=== PATIENT | female | born 1970 | race Caucasian/White ===

== ENCOUNTER 2018-07-16 05:10 | Inpatient (IN) | payer BC, OTHER ==
--- NOTE | 2018-07-16 06:18 | PDOC ---
History of Present Illness - General Chief Complaint: Pain Stated Complaint: ABDOMINAL PAIN Time Seen by Provider: 07/16/18 06:07 - History of Present Illness Initial Comments: 07/16/18 06:24 The patient is a 47 year old female with a history of DM, Gastritis who presents for evaluation of abdominal pain. The patient reports onset of poorly described epigastric and RUQ abdominal pain with radiation to her back beginning yesterday evening. She notes that the pain has been persistent preventing her from sleeping prompting her presentation to the ED for further evaluation. She otherwise denies fevers, chills, SOB, chest pain, nausea, vomiting, or changes with urination or bowel movements. She denies any exacerbating or relieving factors as well. Past History - Past Medical History Allergies/Adverse Reactions: Allergies Allergy/AdvReac Type Severity Reaction Status Date / Time No Known Allergies Allergy Verified 07/16/18 06:18 Home Medications: Ambulatory Orders Atorvastatin Ca [Lipitor] 10 mg PO HS 07/16/18 Lisinopril 2.5 mg HS 07/16/18 Metformin HCl [Glucophage] 500 mg PO BID 07/16/18 Amoxicillin/Potassium Clav [Augmentin 875-125 Tablet] 1 each PO BID #14 tablet 07/17/18 Nicotine [Nicotine Patch 21 mg/24 hr] 1 each TD DAILY #14 patch.td24 07/17/18 Review of Systems - Review of Systems Comments:: 07/16/18 06:26 Constitutional: No fevers, chills, fatigue, malaise HEENT: No Rhinorrhea, nasal congestion, visual changes Cardiovascular: No chest pain, syncope, palpitations, lightheadedness Respiratory: No Cough, SOB, Hemoptysis, Gastrointestinal: Abdominal pain. No Nausea, Vomiting, Constipation, Diarrhea, Melena Genitourinary: No Dysuria, Frequency, Urgency, Hesitancy, Hematuria, Flank pain Musculoskeletal: No Myalgia, arthralgia Skin: No rashes, itching, bruising, pallor Neurologic: No Headache, Dizziness, Numbness, Weakness, or Tingling Psychiatric: No Hallucinations. No SI or HI *Physical Exam - Physical Exam Comments: 07/16/18 06:26 General Appearance: Nourished. No Apparent Distress HEENT: No Pharyngeal Erythema, Tonsillar Exudate, Tonsillar Erythema Neck: No Cervical Lymphadenopathy Respiratory/Chest: Lungs Clear, Normal Breath Sounds. No Crackles, Rales, Rhonchi, Wheezing Cardiovascular: Regular Rhythm, Regular Rate. No Murmur, Gallops, Rubs Gastrointestinal/Abdominal: Normal Bowel Sounds, Soft. No Guarding, Rebound, Tenderness Musculoskeletal: No CVA Tenderness Extremity: Normal Capillary Refill Integumentary: Normal Color, Dry, Warm Neurologic: Fully Oriented, Alert, Normal Mood/Affect, Normal Response, Heart Score/ECG Review #1 ECG reviewed & interpreted by me at: 06:48 General ECG Interpretation: Sinus Rhythm, Normal Rate, Normal Intervals, No acute ischemic changes 07/16/18 06:48 Frequent Premature Ventricular Complexes HR 85 QRS [address] changes ED Treatment Course - LABORATORY CBC & Chemistry Diagram: 07/17/18 06:17 07/17/18 06:17 Medical Decision Making - Medical Decision Making 07/16/18 06:26 The patient is a 47 year old female with a history of DM, Gastritis who presents for evaluation of abdominal pain. Differential includes but is not limited to: Gastritis, Cholecystitis, Pancreatitis, Infectious, Metabolic Derangement. Given the patient's history and physical exam, we will obtain a cbc, cmp, lipase, troponin, ekg, gallbladder US to evaluate further. We will treat with iv fluids and pepcid and continue to monitor and reassess while here in the ED. 07/16/18 07:00 Patient signed out to the Day team pending lab results, gallbladder US and reassessment. *DC/Admit/Observation/Transfer Diagnosis at time of Disposition: Abdominal pain in female - Discharge Dispostion Disposition: HOME Condition at time of disposition: Stable - Referrals - Patient Instructions - Post Discharge Activity
[2018-07-16] MEDS ORDERED: SODIUM CHLORIDE 1,000 ML IV STA (06:19)
[2018-07-16] MEDS ORDERED: FAMOTIDINE 20 MG/50 ML IVPB 20 MG/50 ML MG IVPB ONE ×2 (06:19→08:26)
--- NOTE | 2018-07-16 06:21 | PDOC ---
Attending Attestation - Resident Resident Name: Silver Adkins - ED Attending Attestation I have performed the following: I have examined & evaluated the patient, The case was reviewed & discussed with the resident, I agree w/resident's findings & plan - HPI HPI: 07/16/18 06:31 Pt comes with RUQ pain. She is diabetic and 47 yo and we need to make sure that the pain that began yesterday night into this AM is not cardiac in origin. Pt will get cardiac workup and she will be signed out to the day ER team. 07/16/18 06:57 Pt ate at [facility] yesterday at 3:30PM. Pain started at 8:30PM - Physicial Exam PE: 07/16/18 06:56 Agree with exam. Normal exam; gassy abdomen - Medical Decision Making 07/16/18 06:57 Pt will get 1 cardiac enzyme and she will likely be cleared for discharge home. 07/21/18 22:44 Pt signed out to the day team Heart Score/ECG Review - ECG Intrepretation Rhythm: Regular Rhythm - Dunnegan Dunnegan: Normal - P and MT Prominent R with upright T in V1 (true posterior CO): No Delta Wave(s) Present: No WPW: No Comment:: 07/16/18 06:58 multiple PVCs - QRS Poor R Wave Progression: No Q Wave Present: No - ST and T Flattened T Waves: No Prolonged Q-T Interval: No - ECG Impressions Normal ECG: Yes Non-specific ST Elevation: No Ischemic Changes: No Torsades juliocesar Pointes: No WPW: No
[2018-07-16 06:49] LABS: EOS % 0.1 % (0-4.5); HEMATOCRIT 43.7 % (32.4-45.2); HEMOGLOBIN 14.9 GM/dL (10.7-15.3); LYMPH % 7.9 % (8-40); MCH 30.1 pg (25.7-33.7); MEAN CELL VOLUME 88.7 fl (80-96); MEAN PLT VOLUME 8.5 fl (7.5-11.1); MONO % 3.4 % (3.8-10.2); NEUT % 87.6 % (42.8-82.8); PLATELET COUNT 298 K/MM3 (134-434); RBC 4.93 M/mm3 (3.60-5.2); RDW 13.8 % (11.6-15.6); WHITE BLOOD COUNT 20.1 K/mm3 (4.0-10.0)
[2018-07-16 07:16] LABS: ALBUMIN 3.6 g/dl (3.4-5.0); ALK PHOS 102 U/L (45-117); ANION GAP 6 MMOL/L (8-16); BILIRUBIN,TOTAL 0.3 mg/dL (0.2-1); BLOOD UREA NITROGEN 13 mg/dL (7-18); CALCIUM 9.5 mg/dL (8.5-10.1); CHLORIDE 101 mmol/L (98-107); CO2 27 mmol/L (21-32); CREATININE 0.9 mg/dL (0.55-1.3); GLUCOSE,RANDOM 190 mg/dL (74-106); LIPASE 192 U/L (73-393); POTASSIUM 4.5 mmol/L (3.5-5.1); SGOT/AST 16 U/L (15-37); SGPT/ALT 18 U/L (13-61); SODIUM 135 mmol/L (136-145); TOT PROT 7.5 g/dl (6.4-8.2)
[2018-07-16] MEDS ORDERED: morphine SULFATE 4 MG/ML VIAL ONE (08:57)
[2018-07-16 11:40] LABS: ANISOCYTOSIS 0; HELMET CELLS 0; HOWELL-JOLLY BODIES 0; MACROCYTOSIS 0; OVALOCYTE 0; PLATELET ESTIMATE NORMAL; ROULEAU 0; SICKELED CELLS 0; TARGET CELLS 0; TEAR DROP CELLS 0; TOXIC GRANULATION 0
--- NOTE | 2018-07-16 12:19 | CONSULT ---
Consult Consult Specialty:: General Surgery Reason for Consultation:: gallstones on ultrasound - History of Present Illness Chief Complaint: abdomnial pain History of Present Illness: 47yo female PMH DM type 2, heavy smoker, obesity, gastritis, GERD, cholelithiasis presents with band like abdominal pain which has improved in RUQ. The patient reports onset of poorly described epigastric and RUQ abdominal pain with radiation to her back beginning yesterday evening. She notes that the pain has been persistent preventing her from sleeping prompting her presentation to the ED for further evaluation. She otherwise denies fevers, chills, SOB, chest pain, nausea, vomiting, or changes with urination or bowel movements. She denies any exacerbating or relieving factors as well. we were called to assess given sonogram results. - History Source History Provided By: Patient, Medical Record Limitations to Obtaining History: No Limitations - Past Medical History Gastrointestinal: Yes: Gastritis, GERD Hepatobiliary: Yes: Cholelithiasis ...: No Endocrine: Yes: Diabetes Mellitus Additional Medical History: obesity - Alcohol/Substance Use Hx Alcohol Use: No - Smoking History Smoking history: Current every day smoker Have you smoked in the past 12 months: Yes Aproximately how many cigarettes per day: 20 - Social History Place of : [facility] History of Recent Travel: No Home Medications - Allergies Allergies/Adverse Reactions: Allergies Allergy/AdvReac Type Severity Reaction Status Date / Time No Known Allergies Allergy Verified 07/16/18 06:18 - Home Medications Home Medications: Ambulatory Orders Atorvastatin Ca [Lipitor] 10 mg PO HS 07/16/18 Lisinopril 2.5 mg HS 07/16/18 Metformin HCl [Glucophage] 500 mg PO BID 07/16/18 Physical Exam Vital Signs: Vital Signs Temperature 98 F 07/16/18 05:10 Pulse Rate 86 07/16/18 05:10 Respiratory Rate 18 07/16/18 05:10 Blood Pressure 146/89 07/16/18 05:10 O2 Sat by Pulse Oximetry (%) 98 07/16/18 05:10 Vital Signs Period Temp Pulse Resp BP Sys/Vela Pulse Ox Last 24 Hr 98 F 86 18 146/89 98 Constitutional: Yes: No Distress, Anxious, Obese Eyes: Yes: Conjunctiva Clear, EOM Intact HENT: Yes: Atraumatic, Normocephalic Neck: Yes: Supple, Trachea Midline Cardiovascular: Yes: Regular Rate and Rhythm, S1, S2 Respiratory: Yes: Regular, CTA Bilaterally Gastrointestinal: Yes: Normal Bowel Sounds, Soft, Abdomen, Obese, Tenderness, Tenderness, Epigastrium. No: Tenderness, Rebound ...Rectal Exam: Yes: Deferred Renal/: No: CVA Tenderness - Left, CVA Tenderness - Right Breast(s): No: Nipple Inversion, Skin Changes Musculoskeletal: No: Muscle Pain, Muscle Weakness Extremities: No: Cool, Cyanosis Edema: No Peripheral Pulses WNL: Yes Integumentary: No: Jaundice, Rash, Skin Tear Neurological: Yes: Alert, Oriented. No: Confusion Psychiatric: Yes: Alert, Oriented Labs: CBC, BMP 07/16/18 06:30 07/16/18 06:30 Imaging - Results Cat Scan: Report Reviewed, Image Reviewed (cholelithiasis some pericholecystic fluid, >3cm left adrenal mass) Ultrasound: Report Reviewed, Image Reviewed (cholelithiasis) Problem List - Problems (1) Cholelithiasis Assessment/Plan: 47yo female MMP including gastritis, GERD, and cholelithiasis presents with band like abdominal pain which has improved in RUQ. Sono RUQ was reviewed cholelithiasis without associated cholecystitis. Leukocytosis 20K. CTscan imaging is consistent with acute cholecystitis would reccomend urgent cholecyststocmy. Incidental left adrenal mass - will require work up at the discretion of the medical doctor (would consider urine metanephrines, VMA) NPO and IVF hydration IV antibiotics CTsacn with PO and IV contrast GI evaluation and followup Cardiology evaluation for cholecystectomy repeat labs (trend WBC, repeat LFT) glycemeic control Discussed with patient risks, benefits and alternatives of laparoscopic possible open cholecystectomy, including but not limited to bleeding, infection , injury to adjacent structures, leak or injury, intraabdominal abscess, incisional hernia, need for further procedures, ; alternatives include antibiotics, delayed or no surgery - risks of this include failure of nonoperative therapy, perforation, sepsis, recurrence, . Patient desires to proceed with operation - will take to OR for above. Informed consent signed for same. will follow Thank you for the opportunity to participate in the care of this patient. Code(s): K80.20 - CALCULUS OF GALLBLADDER W/O CHOLECYSTITIS W/O OBSTRUCTION Qualifiers: Cholelithiasis location: gallbladder Cholecystitis presence: without cholecystitis Biliary obstruction: without biliary obstruction Qualified Code(s): K80.20 - Calculus of gallbladder without cholecystitis without obstruction (2) Gastritis Code(s): K29.70 - GASTRITIS, UNSPECIFIED, WITHOUT BLEEDING Qualifiers: Gastritis type: atrophic Gastritis bleeding: without bleeding Qualified Code(s): K29.40 - Chronic atrophic gastritis without bleeding (3) Acid reflux disease Code(s): K21.9 - GASTRO-ESOPHAGEAL REFLUX DISEASE WITHOUT ESOPHAGITIS Qualifiers: Esophagitis presence: without esophagitis Qualified Code(s): K21.9 - Gastro -esophageal reflux disease without esophagitis (4) Hiatal hernia Code(s): K44.9 - DIAPHRAGMATIC HERNIA WITHOUT OBSTRUCTION OR GANGRENE (5) Obesity (BMI 30.0-34.9) Code(s): E66.9 - OBESITY, UNSPECIFIED (6) Abdominal pain in female Code(s): R10.9 - UNSPECIFIED ABDOMINAL PAIN (7) Left adrenal mass Code(s): E27.9 - DISORDER OF ADRENAL GLAND, UNSPECIFIED
[2018-07-16] MEDS ORDERED: CEFOXITIN SODIUM 2 GM in DEXTROSE 5%-WATER - 100 ML IVPB ONE (12:30)
[2018-07-16 13:02] LABS: INR 1.03 (0.83-1.09); PROTHROMBIN TIME (PATIENT) 12.1 SEC (9.7-13.0)
[2018-07-16] MEDS: CEFOXITIN SODIUM/DEXTROSE,ISO 2 GM/50 ML BAG IVPB SCH (13:15)
[2018-07-16] MEDS: LACTATED RINGERS SOLUTION 1,000 ML/1,000 ML INFUS.BAG IV SCH (13:15)
[2018-07-16] MEDS: NICOTINE 21 MG/24 HOURS TOPICAL PATCH TD SCH (13:15)
[2018-07-16 13:33] LABS: EPI CELLS 3.7 /HPF (0-5); URINE APPEARANCE CLEAR; URINE BACTERIA 321.6 /hpf (NEGATIVE); URINE BILIRUBIN NEGATIVE (NEGATIVE); URINE CASTS 1 /hpf (0-8); URINE COLOR YELLOW; URINE GLUCOSE (UA) NEGATIVE (NEGATIVE); URINE KETONE NEGATIVE (NEGATIVE); URINE LEUK ESTERASE TRACE (NEGATIVE); URINE NITRITE NEGATIVE (NEGATIVE); URINE PROTEIN NEGATIVE (NEGATIVE); URINE RBC 3 /hpf (0-4); URINE UROBILINOGEN 0.2 mg/dL (0.2-1.0); URINE WBC 5 /hpf (0-5)
--- NOTE | 2018-07-16 15:29 | EKG ---
Test Reason : Blood Pressure : / mmHG Vent. Rate : 085 BPM Atrial Rate : 085 BPM P-R Int : 120 ms QRS Dur : 090 ms QT Int : 374 ms P-R-T Axes : 054 067 055 degrees QTc Int : 445 ms SINUS RHYTHM WITH FREQUENT PREMATURE VENTRICULAR COMPLEXES OTHERWISE NORMAL ECG NO PREVIOUS ECGS AVAILABLE Confirmed by PRATEEK SANTOS, KEEGAN ([id number]) on 07/16/2018 3:29:21 PM Referred By: Socorro BARRERA Confirmed By:KEEGAN CHANDRA MD
[2018-07-16 16:50] VITALS: BMI 33.2
--- NOTE | 2018-07-16 17:13 | HP ---
Admitting History and Physical - Primary Care Physician PCP: Jazlyn Llamas - Admission History of Present Illness: 47yo female PMH DM type 2, heavy smoker, obesity, gastritis, GERD, cholelithiasis presents with band like abdominal pain which has improved in RUQ. The patient reports onset of poorly described epigastric and RUQ abdominal pain with radiation to her back beginning yesterday evening. She notes that the pain has been persistent preventing her from sleeping prompting her presentation to the ED for further evaluation. She otherwise denies fevers, chills, SOB, chest pain, nausea, vomiting, or changes with urination or bowel movements. She denies any exacerbating or relieving factors as well. we were called to assess given sonogram results. - - Past Medical History Gastrointestinal: Yes: Gastritis, GERD Hepatobiliary: Yes: Cholelithiasis ...: No Endocrine: Yes: Diabetes Mellitus - Smoking History Smoking history: Current every day smoker Have you smoked in the past 12 months: Yes Aproximately how many cigarettes per day: 20 - Alcohol/Substance Use Hx Alcohol Use: No - Social History History of Recent Travel: No Home Medications - Allergies Allergies/Adverse Reactions: Allergies Allergy/AdvReac Type Severity Reaction Status Date / Time No Known Allergies Allergy Verified 07/16/18 06:18 - Home Medications Home Medications: Ambulatory Orders Atorvastatin Ca [Lipitor] 10 mg PO HS 07/16/18 Lisinopril 2.5 mg HS 07/16/18 Metformin HCl [Glucophage] 500 mg PO BID 07/16/18 Amoxicillin/Potassium Clav [Augmentin 875-125 Tablet] 1 each PO BID #14 tablet 07/17/18 Physical Examination Vital Signs: Vital Signs Temperature 98 F 07/16/18 05:10 Pulse Rate 86 07/16/18 05:10 Respiratory Rate 18 07/16/18 05:10 Blood Pressure 146/89 07/16/18 05:10 O2 Sat by Pulse Oximetry (%) 98 07/16/18 05:10 Constitutional: Yes: No Distress HENT: Yes: Atraumatic Neck: Yes: Supple Cardiovascular: Yes: Regular Rate and Rhythm Respiratory: Yes: CTA Bilaterally Gastrointestinal: Yes: Normal Bowel Sounds, Tenderness (mild ruq) Extremities: Yes: WNL Edema: No Neurological: Yes: Alert, Oriented Labs: CBC, BMP 07/16/18 06:30 07/16/18 06:30 Imaging - Results Cat Scan: Report Reviewed Ultrasound: Report Reviewed Problem List - Problems (1) Cholelithiasis Code(s): K80.20 - CALCULUS OF GALLBLADDER W/O CHOLECYSTITIS W/O OBSTRUCTION Qualifiers: Cholelithiasis location: gallbladder Cholecystitis presence: without cholecystitis Biliary obstruction: without biliary obstruction Qualified Code(s): K80.20 - Calculus of gallbladder without cholecystitis without obstruction (2) Gastritis Code(s): K29.70 - GASTRITIS, UNSPECIFIED, WITHOUT BLEEDING Qualifiers: Gastritis type: atrophic Gastritis bleeding: without bleeding Qualified Code(s): K29.40 - Chronic atrophic gastritis without bleeding (3) Hiatal hernia Code(s): K44.9 - DIAPHRAGMATIC HERNIA WITHOUT OBSTRUCTION OR GANGRENE (4) Hypercholesteremia Code(s): E78.00 - PURE HYPERCHOLESTEROLEMIA, UNSPECIFIED (5) Left adrenal mass Code(s): E27.9 - DISORDER OF ADRENAL GLAND, UNSPECIFIED (6) Obesity (BMI 30.0-34.9) Code(s): E66.9 - OBESITY, UNSPECIFIED (7) Type 2 diabetes mellitus Code(s): E11.9 - TYPE 2 DIABETES MELLITUS WITHOUT COMPLICATIONS (8) Acute cholecystitis Assessment/Plan: npo ivf prn pain meds surgery id consult Code(s): K81.0 - ACUTE CHOLECYSTITIS Assessment/Plan Laboratory Results - last 24 hr 07/16/18 07/16/18 07/16/18 06:30 06:30 10:35 WBC 20.1 H RBC 4.93 Hgb 14.9 Hct 43.7 MCV 88.7 MCH 30.1 MCHC 34.0 RDW 13.8 Plt Count 298 MPV 8.5 Absolute Neuts (auto) 17.6 H Neutrophils % 87.6 H Neutrophils % (Manual) 89.1 H Band Neutrophils % 5.0 Lymphocytes % 7.9 L Lymphocytes % (Manual) 5.9 L Monocytes % 3.4 L Monocytes % (Manual) 0 L Eosinophils % 0.1 Eosinophils % (Manual) 0.0 Basophils % 1.0 Basophils % (Manual) 0.0 Myelocytes % (Man) 0 Promyelocytes % (Man) 0 Blast Cells % (Manual) 0 Nucleated RBC % 0 Metamyelocytes 0 Hypochromia 0 Toxic Granulation 0 Dohle Bodies 0 Platelet Estimate Normal Polychromasia 0 Poikilocytosis 0 Basophilic Stippling 0 Anisocytosis 0 Microcytosis 0 Macrocytosis 0 Spherocytes 0 Sickle Cells 0 Target Cells 0 Tear Drop Cells 0 Ovalocytes 0 Stomatocytes 0 Helmet Cells 0 [place] Bodies 0 [place] 0 [place] Cells 0 Acanthocytes (Spur) 0 Rouleaux 0 Fragmented RBCs 0 Schistocytes 0 PT with INR INR Sodium 135 L Potassium 4.5 Chloride 101 Carbon Dioxide 27 Anion Gap 6 L BUN 13 Creatinine 0.9 Creat Clearance w eGFR 66.55 POC Glucometer Random Glucose 190 H Calcium 9.5 Total Bilirubin 0.3 AST 16 ALT 18 Alkaline Phosphatase 102 Creatine Kinase 59 Troponin I < 0.02 < 0.02 Total Protein 7.5 Albumin 3.6 Lipase 192 Urine Color Urine Appearance Urine pH Ur Specific [place] Urine Protein Urine Glucose (UA) Urine Ketones Urine Blood Urine Nitrite Urine Bilirubin Urine Urobilinogen Ur Leukocyte Esterase Urine WBC (Auto) Urine RBC (Auto) Urine Casts (Auto) U Epithel Cells (Auto) Urine Bacteria (Auto) Blood Type Antibody Screen 07/16/18 07/16/18 07/16/18 12:13 12:13 12:15 WBC RBC Hgb Hct MCV MCH MCHC RDW Plt Count MPV Absolute Neuts (auto) Neutrophils % Neutrophils % (Manual) Band Neutrophils % Lymphocytes % Lymphocytes % (Manual) Monocytes % Monocytes % (Manual) Eosinophils % Eosinophils % (Manual) Basophils % Basophils % (Manual) Myelocytes % (Man) Promyelocytes % (Man) Blast Cells % (Manual) Nucleated RBC % Metamyelocytes Hypochromia Toxic Granulation Dohle Bodies Platelet Estimate Polychromasia Poikilocytosis Basophilic Stippling Anisocytosis Microcytosis Macrocytosis Spherocytes Sickle Cells Target Cells Tear Drop Cells Ovalocytes Stomatocytes Helmet Cells [place] Bodies [place] Cells Acanthocytes (Spur) Rouleaux Fragmented RBCs Schistocytes PT with INR 12.10 INR 1.03 Sodium Potassium Chloride Carbon Dioxide Anion Gap BUN Creatinine Creat Clearance w eGFR POC Glucometer 116 Random Glucose Calcium Total Bilirubin AST ALT Alkaline Phosphatase Creatine Kinase Troponin I Total Protein Albumin Lipase Urine Color Urine Appearance Urine pH Ur Specific [place] Urine Protein Urine Glucose (UA) Urine Ketones Urine Blood Urine Nitrite Urine Bilirubin Urine Urobilinogen Ur Leukocyte Esterase Urine WBC (Auto) Urine RBC (Auto) Urine Casts (Auto) U Epithel Cells (Auto) Urine Bacteria (Auto) Blood Type O POSITIVE Antibody Screen Negative 07/16/18 13:20 WBC RBC Hgb Hct MCV MCH MCHC RDW Plt Count MPV Absolute Neuts (auto) Neutrophils % Neutrophils % (Manual) Band Neutrophils % Lymphocytes % Lymphocytes % (Manual) Monocytes % Monocytes % (Manual) Eosinophils % Eosinophils % (Manual) Basophils % Basophils % (Manual) Myelocytes % (Man) Promyelocytes % (Man) Blast Cells % (Manual) Nucleated RBC % Metamyelocytes Hypochromia Toxic Granulation Dohle Bodies Platelet Estimate Polychromasia Poikilocytosis Basophilic Stippling Anisocytosis Microcytosis Macrocytosis Spherocytes Sickle Cells Target Cells Tear Drop Cells Ovalocytes Stomatocytes Helmet Cells [place] Bodies [place] Myrtle Cells Acanthocytes (Spur) Rouleaux Fragmented RBCs Schistocytes PT with INR INR Sodium Potassium Chloride Carbon Dioxide Anion Gap BUN Creatinine Creat Clearance w eGFR POC Glucometer Random Glucose Calcium Total Bilirubin AST ALT Alkaline Phosphatase Creatine Kinase Troponin I Total Protein Albumin Lipase Urine Color Yellow Urine Appearance Clear Urine pH 5.0 Ur Specific [place] 1.014 Urine Protein Negative Urine Glucose (UA) Negative Urine Ketones Negative Urine Blood 1+ H Urine Nitrite Negative Urine Bilirubin Negative Urine Urobilinogen 0.2 Ur Leukocyte Esterase Trace Urine WBC (Auto) 5 Urine RBC (Auto) 3 Urine Casts (Auto) 1 U Epithel Cells (Auto) 3.7 Urine Bacteria (Auto) 321.6 Blood Type Antibody Screen Active Medications Generic Name Dose Route Start Last Admin Trade Name Freq PRN Reason Stop Dose Admin Cefoxitin Sodium 2 gm in 50 mls @ 100 mls/hr 07/16/18 13:00 07/16/18 13:15 Mefoxin Premix (Restricted To Id) IVPB 100 mls/hr ONCE ZURI Administration Protocol Lactated Ringer's 1,000 ml in 1,000 mls @ 100 mls/hr 07/16/18 13:00 07/16/18 13:15 Lactated Ringers Solution IV 100 mls/hr ASDIR ZURI Administration Nicotine 21 mg 07/16/18 12:30 07/16/18 13:15 Nicoderm Patch - TD 21 mg DAILY ZURI Administration
[2018-07-16] MEDS ORDERED: metFORMIN HCL 500 MG TABLET (FP) PO SCH (19:45)
[2018-07-16] MEDS ORDERED: MORPHINE SULFATE 2 MG/ML VIAL IVPUSH PRN (21:35)
[2018-07-16] MEDS ORDERED: ATORVASTATIN CA 10 MG TABLET (FP) PO SCH (22:00)
[2018-07-16] MEDS ORDERED: LISINOPRIL 5 MG TABLET (FP) PO SCH (22:00)
[2018-07-17] MEDS: LACTATED RINGERS SOLUTION 1,000 ML/1,000 ML INFUS.BAG IV SCH ×3 (00:10→13:49)
[2018-07-17 07:29] LABS: BASO % 0.7 % (0-2.0); EOS % 1.8 % (0-4.5); HEMATOCRIT 40.8 % (32.4-45.2); LYMPH % 29.8 % (8-40); MCH 30.5 pg (25.7-33.7); MCHC 34.4 g/dl (32.0-36.0); MEAN CELL VOLUME 88.8 fl (80-96); MEAN PLT VOLUME 8.6 fl (7.5-11.1); MONO % 8.8 % (3.8-10.2); NEUT % 58.9 % (42.8-82.8); PLATELET COUNT 249 K/MM3 (134-434); RDW 13.9 % (11.6-15.6); WHITE BLOOD COUNT 9.4 K/mm3 (4.0-10.0)
[2018-07-17 07:55] LABS: ALBUMIN 3.1 g/dl (3.4-5.0); ALK PHOS 89 U/L (45-117); ANION GAP 7 MMOL/L (8-16); BILIRUBIN,TOTAL 0.5 mg/dL (0.2-1); BLOOD UREA NITROGEN 8 mg/dL (7-18); CALCIUM 8.5 mg/dL (8.5-10.1); CHLORIDE 107 mmol/L (98-107); CO2 28 mmol/L (21-32); CREATININE 0.8 mg/dL (0.55-1.3); GLUCOSE,RANDOM 108 mg/dL (74-106); POTASSIUM 4.1 mmol/L (3.5-5.1); SGOT/AST 17 U/L (15-37); SGPT/ALT 21 U/L (13-61); SODIUM 142 mmol/L (136-145); TOT PROT 6.4 g/dl (6.4-8.2)
[2018-07-17] MEDS ORDERED: PIPERACILLIN/TAZOBACTAM 4.5 GM VIAL IVPB ONE (09:19)
[2018-07-17] MEDS ORDERED: DEXTROSE 5%-WATER 100 ML IVPB ONE (09:20)
[2018-07-17] MEDS: PIPERACILLIN/TAZOB 4.5 GM 4.5 GM in DEXTROSE 5%-WATER 100 ML IVPB SCH ×2 (09:34→10:53)
[2018-07-17] MEDS: NICOTINE 21 MG/24 HOURS TOPICAL PATCH TD SCH ×2 (09:35→10:57)
[2018-07-17] MEDS ORDERED: PANTOPRAZOLE SODIUM 40 MG VIAL IVPUSH SCH (10:00)
--- NOTE | 2018-07-17 10:40 | PN ---
Progress Note, Physician Chief Complaint: RUQ pain History of Present Illness: 47yo female PMH DM type 2, heavy smoker, obesity, gastritis, GERD, cholelithiasis presents with band like abdominal pain which has improved in RUQ. she has been seen by ID and endocrine in consultation in the interim - Current Medication List Current Medications: Active Medications Atorvastatin Calcium (Lipitor -) 10 mg PO HS ZURI Last Admin: 07/16/18 22:26 Dose: 10 mg Cefoxitin Sodium (Mefoxin Premix (Restricted To Id)) 2 gm in 50 mls @ 100 mls/ hr IVPB ONCE ZURI; Protocol Last Admin: 07/16/18 13:15 Dose: 100 mls/hr Lactated Ringer's (Lactated Ringers Solution) 1,000 ml in 1,000 mls @ 100 mls/ hr IV ASDIR ZURI Last Admin: 07/17/18 00:10 Dose: 100 mls/hr Piperacillin Sod/Tazobactam (Sod 4.5 gm/ Dextrose) 100 mls @ 200 mls/hr IVPB Q8H-IV ZURI; Protocol Last Admin: 07/17/18 09:34 Dose: 200 mls/hr Lisinopril (Prinivil) 2.5 mg PO HS ZURI Last Admin: 07/16/18 22:26 Dose: 2.5 mg Morphine Sulfate (Morphine Sulfate) 2 mg IVPUSH Q4H PRN PRN Reason: PAIN LEVEL 4 - 6 Nicotine (Nicoderm Patch -) 21 mg TD DAILY ZURI Last Admin: 07/17/18 09:35 Dose: Not Given Pantoprazole Sodium (Protonix Iv) 40 mg IVPUSH DAILY ZURI Last Admin: 07/17/18 09:34 Dose: 40 mg - Objective Vital Signs: Vital Signs Temperature 98.0 F 07/17/18 09:30 Pulse Rate 69 07/17/18 09:30 Respiratory Rate 18 07/17/18 09:30 Blood Pressure 120/58 L 07/17/18 09:30 O2 Sat by Pulse Oximetry (%) 96 07/16/18 20:11 Vital Signs Period Temp Pulse Resp BP Sys/Vela Pulse Ox Last 24 Hr 97.7 F-98.4 F 69-96 18-76 104-154/50-86 96-98 Constitutional: Yes: Well Nourished, No Distress, Calm Eyes: Yes: Conjunctiva Clear, EOM Intact HENT: Yes: Atraumatic, Normocephalic Neck: Yes: Supple, Trachea Midline Cardiovascular: Yes: Regular Rate and Rhythm, S1, S2 Respiratory: Yes: Regular, CTA Bilaterally Gastrointestinal: Yes: Normal Bowel Sounds, Soft ...Rectal Exam: Yes: Deferred Genitourinary: No: CVA Tenderness - Left, CVA Tenderness - Right Breast(s): No: Dimpling, Nipple Inversion Musculoskeletal: No: Muscle Pain, Muscle Weakness Extremities: No: Cool, Cyanosis Edema: No Peripheral Pulses WNL: Yes Peripheral Pulses: Left Radial: 2+, Right Radial: 2+, Left Doralis Pedis: 2+, Right Dorsalis Pedis: 2+, Left Femoral: 2+, Right Femoral: 2+ Integumentary: No: Jaundice, Pressure Ulcer Neurological: Yes: Alert, Oriented Psychiatric: Yes: Alert, Oriented Labs: CBC, BMP 07/17/18 06:17 07/17/18 06:17 INR, PTT INR 1.03 (0.83-1.09) 07/16/18 12:13 Problem List - Problems (1) Cholelithiasis Assessment/Plan: 47yo female MMP including gastritis, GERD, and cholelithiasis presents with band like abdominal pain which has improved in RUQ. Sono RUQ was reviewed cholelithiasis without associated cholecystitis. Leukocytosis 20K. CTscan imaging is consistent with acute cholecystitis would reccomend urgent cholecyststocmy. Cancelled surgery today in order to proceed with incidental left adrenal mass - will require work up at the discretion of the medical doctor (would consider urine metanephrines, VMA) start diet IV antibiotics transition to PO GI followup endocrine followup surgery followup for elective cholecystectomy Code(s): K80.20 - CALCULUS OF GALLBLADDER W/O CHOLECYSTITIS W/O OBSTRUCTION Qualifiers: Cholelithiasis location: gallbladder Cholecystitis presence: without cholecystitis Biliary obstruction: without biliary obstruction Qualified Code(s): K80.20 - Calculus of gallbladder without cholecystitis without obstruction (2) Gastritis Code(s): K29.70 - GASTRITIS, UNSPECIFIED, WITHOUT BLEEDING Qualifiers: Gastritis type: atrophic Gastritis bleeding: without bleeding Qualified Code(s): K29.40 - Chronic atrophic gastritis without bleeding (3) Acid reflux disease Code(s): K21.9 - GASTRO-ESOPHAGEAL REFLUX DISEASE WITHOUT ESOPHAGITIS Qualifiers: Esophagitis presence: without esophagitis Qualified Code(s): K21.9 - Gastro -esophageal reflux disease without esophagitis (4) Hiatal hernia Code(s): K44.9 - DIAPHRAGMATIC HERNIA WITHOUT OBSTRUCTION OR GANGRENE (5) Obesity (BMI 30.0-34.9) Code(s): E66.9 - OBESITY, UNSPECIFIED (6) Abdominal pain in female Code(s): R10.9 - UNSPECIFIED ABDOMINAL PAIN (7) Left adrenal mass Code(s): E27.9 - DISORDER OF ADRENAL GLAND, UNSPECIFIED
--- NOTE | 2018-07-17 11:07 | CON.CARD ---
Consult Consult Specialty:: Cardiology Referred by:: Dr. Llamas Reason for Consultation:: Cardiac evaluation - History of Present Illness Chief Complaint: RUQ abdominal pain History of Present Illness: Patient is a 47 year old female with underlying history of type 2 DM, exogenous obesity, GERD, HTN, hypercholesterolemia and cholelithiasis currently admitted with RUQ pain and awaits laparoscopic cholecystectomy, however; currently postponed due to left adrenal mass on abdominal CT. Currently she denies any abdominal pain. She denies chest pain, SOB or palpitations. She denies paroxysmal nocturnal dyspnea or orthopnea. She denies fever or chills. She denies nausea, vomiting, diarrhea. She denies headache or lightheadedness. ECG revealed normal sinus rhythm with PVCs - History Source History Provided By: Patient, Medical Record Limitations to Obtaining History: No Limitations - Past Medical History Gastrointestinal: Yes: Gastritis, GERD Hepatobiliary: Yes: Cholelithiasis ...: No Endocrine: Yes: Diabetes Mellitus Additional Medical History: obesity - Past Surgical History Past Surgical History: Yes: None - Alcohol/Substance Use Hx Alcohol Use: No - Smoking History Smoking history: Current every day smoker Have you smoked in the past 12 months: Yes Aproximately how many cigarettes per day: 20 - Social History History of Recent Travel: No Home Medications - Allergies Allergies/Adverse Reactions: Allergies Allergy/AdvReac Type Severity Reaction Status Date / Time No Known Allergies Allergy Verified 07/16/18 06:18 - Home Medications Home Medications: Ambulatory Orders Atorvastatin Ca [Lipitor] 10 mg PO HS 07/16/18 Lisinopril 2.5 mg HS 07/16/18 Metformin HCl [Glucophage] 500 mg PO BID 07/16/18 Family Disease History - Family Disease History Other Family History: History of DM, HTN Review of Systems - Review of Systems Constitutional: denies: Chills, Fever Cardiovascular: denies: Chest Pain, Palpitations, Shortness of Breath Respiratory: denies: Cough, Hemoptysis, Orthopnea, PND, SOB, SOB on Exertion Gastrointestinal: reports: Abdominal Pain. denies: Constipation, Diarrhea, Melena, Nausea, Rectal Bleeding, Vomiting Genitourinary: denies: Dysuria, Hematuria Neurological: denies: Dizziness, Headache, Seizure, Syncope Vital Signs: Vital Signs Temperature 98.0 F 07/17/18 09:30 Pulse Rate 69 07/17/18 09:30 Respiratory Rate 18 04/09/19 09:30 Blood Pressure 120/58 L 07/17/18 09:30 O2 Sat by Pulse Oximetry (%) 96 07/16/18 20:11 Constitutional: Yes: No Distress Eyes: Yes: PERRL HENT: Yes: Atraumatic Neck: Yes: Supple Respiratory: Yes: CTA Bilaterally Gastrointestinal: Yes: Normal Bowel Sounds, Soft. No: Tenderness Cardiovascular: Yes: Regular Rate and Rhythm JVD: No Carotid Bruit: No PMI: Non-Displaced Heart Sounds: Yes: S1, S2. No: Gallop Murmur: No: Systolic Murmur, Diastolic Murmur Edema: No - Other Data Labs, Other Data: CBC, BMP 07/17/18 06:17 07/17/18 06:17 INR, PTT INR 1.03 (0.83-1.09) 07/16/18 12:13 Troponin, BNP 07/16/18 10:35 Troponin I < 0.02 Sinus rhythm with occasional PVCs Imaging - Results Cat Scan: Report Reviewed (Abdomen CT) EKG: Report Reviewed Problem List - Problems (1) Hypercholesteremia Code(s): E78.00 - PURE HYPERCHOLESTEROLEMIA, UNSPECIFIED (2) HTN (hypertension) Code(s): I10 - ESSENTIAL (PRIMARY) HYPERTENSION (3) Type 2 diabetes mellitus Code(s): E11.9 - TYPE 2 DIABETES MELLITUS WITHOUT COMPLICATIONS (4) Cholelithiasis Code(s): K80.20 - CALCULUS OF GALLBLADDER W/O CHOLECYSTITIS W/O OBSTRUCTION Qualifiers: Cholelithiasis location: gallbladder Cholecystitis presence: without cholecystitis Biliary obstruction: without biliary obstruction Qualified Code(s): K80.20 - Calculus of gallbladder without cholecystitis without obstruction (5) Gastritis Code(s): K29.70 - GASTRITIS, UNSPECIFIED, WITHOUT BLEEDING Qualifiers: Gastritis type: atrophic Gastritis bleeding: without bleeding Qualified Code(s): K29.40 - Chronic atrophic gastritis without bleeding (6) Left adrenal mass Code(s): E27.9 - DISORDER OF ADRENAL GLAND, UNSPECIFIED Assessment/Plan 1. PVCs, likely benign 2. Cholelithiasis 3. HTN 4. Hypercholesterolemia 5. Type 2 DM 6. Exogenous obesity PLAN: 1. Further plans as per Surgical service regarding timing of surgery 2. Further evaluation of adrenal mass 3. Continue Lipitor and Lisinopril as tolerated 4. Empiric antibiotics 5. Echocardiography can be done as outpatient. [facility] the [facility] ([facility]) [phone] Matthias Bell MD
--- NOTE | 2018-07-17 11:11 | CONSULT ---
Consult Consult Specialty:: Endocrinology Referred by:: Dr Llamas Reason for Consultation:: Adrenal Mass - History of Present Illness Chief Complaint: Abd pain History of Present Illness: This is a 47 year old female with a history of T2DM, Gastritis who presents for evaluation of abdominal pain. The patient reports onset of poorly described epigastric and RUQ abdominal pain with radiation to her back beginning yesterday evening. She notes that the pain has been persistent preventing her from sleeping prompting her presentation to the ED for further evaluation. She otherwise denies fevers, chills, SOB, chest pain, nausea, vomiting, or changes with urination or bowel movements. She denies any exacerbating or relieving factors as well. Pt found to have cholelithiasis and left adrenal mass and referred for evaluation. Pt denies any previous diagnosis of adrenal problem and doesn't remember having any previous CT abdomen. - History Source History Provided By: Patient, Medical Record Limitations to Obtaining History: No Limitations - Past Medical History Gastrointestinal: Yes: Gastritis, GERD Hepatobiliary: Yes: Cholelithiasis ...: No Endocrine: Yes: Diabetes Mellitus Additional Medical History: obesity - Alcohol/Substance Use Hx Alcohol Use: No - Smoking History Smoking history: Current every day smoker Have you smoked in the past 12 months: Yes Aproximately how many cigarettes per day: 20 - Social History History of Recent Travel: No Home Medications - Allergies Allergies/Adverse Reactions: Allergies Allergy/AdvReac Type Severity Reaction Status Date / Time No Known Allergies Allergy Verified 07/16/18 06:18 - Home Medications Home Medications: Ambulatory Orders Atorvastatin Ca [Lipitor] 10 mg PO HS 07/16/18 Lisinopril 2.5 mg HS 07/16/18 Metformin HCl [Glucophage] 500 mg PO BID 07/16/18 Amoxicillin/Potassium Clav [Augmentin 875-125 Tablet] 1 each PO BID #14 tablet 07/17/18 Nicotine [Nicotine Patch 21 mg/24 hr] 1 each TD DAILY #14 patch.[id number] 07/17/18 Review of Systems - Review of Systems Constitutional: reports: No Symptoms Eyes: reports: No Symptoms HENT: reports: No Symptoms Neck: reports: No Symptoms Cardiovascular: reports: No Symptoms Respiratory: reports: No Symptoms Gastrointestinal: reports: No Symptoms Genitourinary: reports: No Symptoms Musculoskeletal: reports: No Symptoms Integumentary: reports: No Symptoms Neurological: reports: No Symptoms Endocrine: reports: No Symptoms Hematology/Lymphatic: reports: No Symptoms Physical Exam Vital Signs: Vital Signs Temperature 98.0 F 07/17/18 09:30 Pulse Rate 69 07/17/18 09:30 Respiratory Rate 18 07/17/18 09:30 Blood Pressure 120/58 L 07/17/18 09:30 O2 Sat by Pulse Oximetry (%) 96 07/16/18 20:11 Constitutional: Yes: No Distress, Calm Eyes: Yes: Conjunctiva Clear, EOM Intact HENT: Yes: Atraumatic, Normocephalic Neck: Yes: Supple, Trachea Midline Cardiovascular: Yes: Regular Rate and Rhythm Respiratory: Yes: Regular, CTA Bilaterally Gastrointestinal: Yes: Normal Bowel Sounds, Soft Musculoskeletal: Yes: WNL Extremities: Yes: WNL Edema: No Neurological: Yes: Alert, Oriented Labs: CBC, BMP 07/17/18 06:17 07/17/18 06:17 Imaging - Results Cat Scan: Report Reviewed Assessment/Plan AP; Cholelithiasis Adrenal Mass Will get 24 hr urine for metanephrines and catecholamines Cortisol at 8 AM post 1mg Dexa given at 11 PM Agustin and Renin Probability of an Adrnal adenoma being diagnosed as Pheo is 3 to 7 % Will also get MRI of Abd as suggested by Radiology Will f/u Pt to f/u in office for further evaluation if pt is discharged today
--- NOTE | 2018-07-17 13:27 | CON.ID ---
Consult Consult Specialty:: infectious diseases Referred by:: Reason for Consultation:: abd pain ,ac choleycystitis - History of Present Illness Chief Complaint: abd pain History of Present Illness: 47yo female PMH DM type 2, heavy smoker, obesity, gastritis, GERD, cholelithiasis admitted with abdominal pain which has improved now. The patient reports onset of poorly described epigastric and RUQ abdominal pain with radiation to her back beginning yesterday evening. She notes that the pain has been persistent preventing her from sleeping prompting her presentation to the ED for further evaluation. She otherwise denies fevers, chills, SOB, chest pain, nausea, vomiting, or changes with urination or bowel movements. She denies any exacerbating or relieving factors as well. patient was worked up found to have leukocytosis and seen by surgery and yari was for cholecystecotmy patient was started on abx on the work up patient was found to ahve adrenal mass and endo saw the patient and the surgery had to be postponed patient has been doing well - History Source History Provided By: Patient Limitations to Obtaining History: No Limitations - Past Medical History Gastrointestinal: Yes: Gastritis, GERD Hepatobiliary: Yes: Cholelithiasis ...: No Endocrine: Yes: Diabetes Mellitus Additional Medical History: obesity - Past Surgical History Past Surgical History: Yes: None - Alcohol/Substance Use Hx Alcohol Use: No - Smoking History Smoking history: Current every day smoker Have you smoked in the past 12 months: Yes Aproximately how many cigarettes per day: 20 - Social History History of Recent Travel: No Home Medications - Allergies Allergies/Adverse Reactions: Allergies Allergy/AdvReac Type Severity Reaction Status Date / Time No Known Allergies Allergy Verified 07/16/18 06:18 - Home Medications Home Medications: Ambulatory Orders Atorvastatin Ca [Lipitor] 10 mg PO HS 07/16/18 Lisinopril 2.5 mg HS 07/16/18 Metformin HCl [Glucophage] 500 mg PO BID 07/16/18 Family Disease History - Family Disease History Other Family History: History of DM, HTN Review of Systems - Review of Systems Constitutional: reports: No Symptoms Eyes: reports: No Symptoms HENT: reports: No Symptoms Neck: reports: No Symptoms Cardiovascular: reports: No Symptoms Respiratory: reports: No Symptoms Gastrointestinal: reports: Abdominal Pain (ruq) Genitourinary: reports: No Symptoms Musculoskeletal: reports: No Symptoms Integumentary: reports: No Symptoms Neurological: reports: No Symptoms Endocrine: reports: No Symptoms Hematology/Lymphatic: reports: No Symptoms Psychiatric: reports: No Symptoms Physical Exam Vital Signs: Vital Signs Temperature 98.0 F 07/17/18 09:30 Pulse Rate 69 07/17/18 09:30 Respiratory Rate 18 07/17/18 09:30 Blood Pressure 120/58 L 07/17/18 09:30 O2 Sat by Pulse Oximetry (%) 98 07/17/18 09:35 Constitutional: Yes: Well Nourished, No Distress, Calm Eyes: Yes: Conjunctiva Clear HENT: Yes: Atraumatic, Normocephalic Neck: Yes: Supple, Trachea Midline Cardiovascular: Yes: Regular Rate and Rhythm Respiratory: Yes: Regular, CTA Bilaterally Gastrointestinal: Yes: Normal Bowel Sounds, Soft Musculoskeletal: Yes: WNL Extremities: Yes: WNL Neurological: Yes: Alert, Oriented Psychiatric: Yes: Alert, Oriented Labs: CBC, BMP 07/17/18 06:17 07/17/18 06:17 Imaging - Results Cat Scan: Report Reviewed, Image Reviewed Ultrasound: Report Reviewed, Image Reviewed Assessment/Plan Problem List - Problems (1) Cholelithiasis Code(s): K80.20 - CALCULUS OF GALLBLADDER W/O CHOLECYSTITIS W/O OBSTRUCTION Qualifiers: Cholelithiasis location: gallbladder Cholecystitis presence: without cholecystitis Biliary obstruction: without biliary obstruction Qualified Code(s): K80.20 - Calculus of gallbladder without cholecystitis without obstruction (2) Gastritis Code(s): K29.70 - GASTRITIS, UNSPECIFIED, WITHOUT BLEEDING Qualifiers: Gastritis type: atrophic Gastritis bleeding: without bleeding Qualified Code(s): K29.40 - Chronic atrophic gastritis without bleeding (3) Acid reflux disease Code(s): K21.9 - GASTRO-ESOPHAGEAL REFLUX DISEASE WITHOUT ESOPHAGITIS Qualifiers: Esophagitis presence: without esophagitis Qualified Code(s): K21.9 - Gastro -esophageal reflux disease without esophagitis (4) Hiatal hernia Code(s): K44.9 - DIAPHRAGMATIC HERNIA WITHOUT OBSTRUCTION OR GANGRENE (5) Obesity (BMI 30.0-34.9) Code(s): E66.9 - OBESITY, UNSPECIFIED (6) Abdominal pain in female Code(s): R10.9 - UNSPECIFIED ABDOMINAL PAIN (7) Left adrenal mass Code(s): E27.9 - DISORDER OF ADRENAL GLAND, UNSPECIFIED plan continue current abx once patient stable to go home can switch to oral abx rest continue current mgmt oral abx [id number] po bid for another 7 days
[2018-07-17] MEDS: CEFOXITIN SODIUM/DEXTROSE,ISO 2 GM/50 ML BAG IVPB SCH (13:48)
--- NOTE | 2018-07-17 14:20 | DS ---
Physical Examination Vital Signs: Vital Signs Temperature 98.0 F 07/17/18 09:30 Pulse Rate 69 07/17/18 09:30 Respiratory Rate 18 07/17/18 09:30 Blood Pressure 120/58 L 07/17/18 09:30 O2 Sat by Pulse Oximetry (%) 98 07/17/18 09:35 Constitutional: Yes: No Distress HENT: Yes: Atraumatic Neck: Yes: Supple Cardiovascular: Yes: Regular Rate and Rhythm Respiratory: Yes: CTA Bilaterally Gastrointestinal: Yes: Normal Bowel Sounds Extremities: Yes: WNL Edema: No Peripheral Pulses WNL: Yes Neurological: Yes: Alert, Oriented Labs: CBC, BMP 07/17/18 06:17 07/17/18 06:17 Discharge Summary Reason For Visit: ABDOMINAL PAIN Current Active Problems Abdominal pain in female (Acute) Acid reflux disease (Acute) Cholelithiasis (Acute) Gastritis (Acute) HTN (hypertension) (Acute) Hiatal hernia (Acute) Hypercholesteremia (Acute) Left adrenal mass (Acute) Obesity (BMI 30.0-34.9) (Acute) Type 2 diabetes mellitus (Acute) Condition: Improved - Instructions Diet, Activity, Other Instructions: Pain: For pain, you may use and alternate Tylenol (acetaminophen) 1-2 pills and/ or ibuprofen 200 mg (1-3 pills) every 6 hours each as needed; this means that you can take one OR the other at 3-hour intervals. If you are prescribed a Tylenol/narcotic combination for severe pain, use it instead of plain Tylenol as needed and switch back when your pain starts decreasing. Do not take more than 4000mg of acetaminophen in a day. Take medications as prescribed or indicated on the labeling. Follow up with Dr. Cottrell Also, see your primary medical doctor within 1-2 weeks. Referrals: Modesot Cottrell MD [Staff Physician] - Disposition: HOME - Home Medications Comprehensive Discharge Medication List: Ambulatory Orders Atorvastatin Ca [Lipitor] 10 mg PO HS 07/16/18 Lisinopril 2.5 mg HS 07/16/18 Metformin HCl [Glucophage] 500 mg PO BID 07/16/18 dc fu endocrine as out patient low fat diet
[2018-07-17 14:27] VITALS: BP 118/50; PULSE 76; TEMP 98.4
[2018-07-17] MEDS ORDERED: DEXAMETHASONE 0.5 MG TABLET PO ONE (23:00)
== END 2018-07-17 18:00 | disposition home or self-care (01) | DRG 446 ==
LOC: JER 05:10 → JERBED 13:37 → J7W 16:00 → JERBED 16:00 → J7W 16:16
PROVIDERS: ADMIT Internal Medicine; ATTEND Internal Medicine
DX: K80.20 Calculus of gallbladder without cholecystitis without obstruction (principal); K29.70 Gastritis, unspecified, without bleeding; I10 Essential (primary) hypertension; E11.9 Type 2 diabetes mellitus without complications; E27.9 Disorder of adrenal gland, unspecified; E66.9 Obesity, unspecified; Z68.33 Body mass index [BMI] 33.0-33.9, adult; K21.9 Gastro-esophageal reflux disease without esophagitis; F17.210 Nicotine dependence, cigarettes, uncomplicated; K44.9 Diaphragmatic hernia without obstruction or gangrene
CPT/HCPCS: 36415; 74177-TC; 76705-TC; 80053; 81003; 82088; 82533; 82550; 82570; 82962; 83690; 84484; 84585; 85025; 85610; 86850; 86900; 86901; 93005; 93010; 94010; 99285-25; J7030